=== PATIENT | female | born 1955 | race Caucasian/White ===

== ENCOUNTER 2018-01-31 12:56 | Observation (INO) | payer OTHER ==
[2018-01-31] VITALS (9 sets, daily range): BP systolic 128–179; BP diastolic 60–88; PULSE 59–79; RESP 12–20; TEMP 98.2–98.5; O2SAT 96–99
[~2018-01-31 12:56] MED LIST: ANTIACID; HYDR-3533 PO; LOVA40TA OR; MEDR2.5 PO; METHO500 PO; ZOLO25TA PO
[2018-01-31 13:33] LABS: AUTOMATED NEUTROPHIL # 2.9 TH/MM3 (1.8-7.7); BASOPHIL # 0.1 TH/MM3 (0-0.2); BASOPHIL % 1.3 % (0.0-2.0); EOSINOPHIL # 0.2 TH/MM3 (0-0.4); EOSINOPHIL % 4.1 % (0.0-4.0); HEMATOCRIT 41.7 % (35.0-46.0); HEMOGLOBIN 14.1 GM/DL (11.6-15.3); LYMPH % 25.6 % (9.0-44.0); LYMPHOCYTE # 1.3 TH/MM3 (1.0-4.8); MEAN CELL VOLUME 86.5 FL (80.0-100.0); MEAN CORPUSCULAR HEMOGLOBIN 29.1 PG (27.0-34.0); MEAN CORPUSCULAR HGB CONC 33.7 % (32.0-36.0); MEAN PLATELET VOLUME 9.7 FL (7.0-11.0); MONO % 10.2 % (0.0-8.0); MONOCYTE # 0.5 TH/MM3 (0-0.9); NEUT % 58.8 % (16.0-70.0); PLATELET COUNT 207 TH/MM3 (150-450); RED BLOOD COUNT 4.83 MIL/MM3 (4.00-5.30); RED CELL DISTRIBUTION WIDTH 14.2 % (11.6-17.2)
[2018-01-31 13:49] LABS: ALBUMIN 3.7 GM/DL (3.4-5.0); ALT (GPT) 20 U/L (10-53); AST (GOT) 19 U/L (15-37); BICARBONATE 28.3 MEQ/L (21.0-32.0); BLOOD UREA NITROGEN 9 MG/DL (7-18); CALCIUM 8.9 MG/DL (8.5-10.1); CHLORIDE 105 MEQ/L (98-107); CREATININE 0.77 MG/DL (0.50-1.00); GLOMERULAR FILTRATION RATE 76 ML/MIN (>89); GLUCOSE,RANDOM 129 MG/DL (74-106); MAGNESIUM 2.1 MG/DL (1.5-2.5); SODIUM (NA) 140 MEQ/L (136-145)
[2018-01-31 13:54] LABS: ALKALINE PHOSPHATASE 82 U/L (45-117); TOTAL BILIRUBIN ADULT 0.6 MG/DL (0.2-1.0); TOTAL PROTEIN 7.5 GM/DL (6.4-8.2); TROPONIN I LESS THAN 0.02 NG/ML (0.02-0.05)
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
[2018-01-31] MEDS ORDERED: LORazepam 2 MG/ML VIAL IV PUSH ONE (14:15)
[2018-01-31] MEDS ORDERED: ASPIRIN 81 MG CHEW TAB CHEW ONE (14:15)
[2018-01-31] MEDS ORDERED: ONDANSETRON HCL 4 MG/2 ML VIAL IV PUSH ONE (14:15)
--- NOTE | 2018-01-31 14:19 | RADRPT ---
EXAM DATE/TIME: 01/31/2018 13:43 [facility] COMPARISON: CHEST PA & LAT, January 15, 2016, 21:35. INDICATIONS : Chest pain. with shortness of breath. MEDICAL HISTORY : Asthma. SURGICAL HISTORY : None. ENCOUNTER: Initial ACUITY: 1 week PAIN SCORE: 2/10 LOCATION: Bilateral chest FINDINGS: PA and lateral views of the chest demonstrate the lungs to be symmetrically aerated without evidence of mass, infiltrate or effusion. There is suggestion of some mild atelectasis or scarring in the lef t lingula/lower lobe. The cardiomediastinal contours are unremarkable. Osseous structures are intact with a mild dextroscoliosis of the dorsal spine. CONCLUSION: 1. Possible scarring or atelectasis in the left lingular region. Lungs are otherwise clear. 2. Mild dextroscoliosis of the dorsal spine Bernardo Bowers MD on January 31, 2018 at 14:12 Board Certified Radiologist. This report was verified electronically.
[2018-01-31] MEDS ORDERED: IOHEXOL 350 MG/ML 50 ML BTL (for Cath Lab) OTHER ONE (14:26)
--- NOTE | 2018-01-31 14:33 | PD ---
Data Data Last Documented VS Vital Signs Date Time Temp Pulse Resp B/P (MAP) Pulse Ox O2 Delivery O2 Flow Rate FiO2 01/31/18 14:11 71 97 Room Air 01/31/18 14:11 15 168/77 (107) 01/31/18 13:08 98.2 Orders Orders Electrocardiogram (01/31/18 13:12) Ckmb (Isoenzyme) Profile (01/31/18 13:12) Complete Blood Count With Diff (01/31/18 13:12) Comprehensive Metabolic Panel (01/31/18 13:12) Magnesium (Mg) (01/31/18 13:12) Prothrombin Time / Inr (Pt) (01/31/18 13:12) Act Partial Throm Time (Ptt) (01/31/18 13:12) Troponin I (01/31/18 13:12) Lipase (01/31/18 13:12) Chest, Pa & Lat (01/31/18 13:12) Lorazepam Inj (Ativan Inj) (01/31/18 14:15) Aspirin Chew (Aspirin Chew) (01/31/18 14:15) Ondansetron Inj (Zofran Inj) (01/31/18 14:15) Admit Order (Ed Use Only) (01/31/18 14:24) Labs Laboratory Tests Test 01/31/18 13:14 White Blood Count 5.0 TH/MM3 Red Blood Count 4.83 MIL/MM3 Hemoglobin 14.1 GM/DL Hematocrit 41.7 % Mean Corpuscular Volume 86.5 FL Mean Corpuscular Hemoglobin 29.1 PG Mean Corpuscular Hemoglobin Concent 33.7 % Red Cell Distribution Width 14.2 % Platelet Count 207 TH/MM3 Mean Platelet Volume 9.7 FL Neutrophils (%) (Auto) 58.8 % Lymphocytes (%) (Auto) 25.6 % Monocytes (%) (Auto) 10.2 % Eosinophils (%) (Auto) 4.1 % Basophils (%) (Auto) 1.3 % Neutrophils # (Auto) 2.9 TH/MM3 Lymphocytes # (Auto) 1.3 TH/MM3 Monocytes # (Auto) 0.5 TH/MM3 Eosinophils # (Auto) 0.2 TH/MM3 Basophils # (Auto) 0.1 TH/MM3 CBC Comment DIFF FINAL Differential Comment Prothrombin Time 10.0 SEC Prothromb Time International Ratio 1.0 RATIO Activated Partial Thromboplast Time 25.0 SEC Blood Urea Nitrogen 9 MG/DL Creatinine 0.77 MG/DL Random Glucose 129 MG/DL Total Protein 7.5 GM/DL Albumin 3.7 GM/DL Calcium Level 8.9 MG/DL Magnesium Level 2.1 MG/DL Alkaline Phosphatase 82 U/L Aspartate Amino Transf (AST/SGOT) 19 U/L Alanine Aminotransferase (ALT/SGPT) 20 U/L Total Bilirubin 0.6 MG/DL Sodium Level 140 MEQ/L Potassium Level 3.5 MEQ/L Chloride Level 105 MEQ/L Carbon Dioxide Level 28.3 MEQ/L Anion Gap 7 MEQ/L Estimat Glomerular Filtration Rate 76 ML/MIN Total Creatine Kinase 84 U/L Troponin I LESS THAN 0.02 NG/ML Lipase 138 U/L MDM Supervised Visit with TANVI: Yes Narrative Course I, Dr. Buitrago, have reviewed the advance practice practitioner's documentation and am in agreement, met with the patient face to face, made the diagnosis, and the medical decision making was done by me. *My assessment and Findings: Patient will be admitted to the chest pain center. She has had a week of tightness. Cardiac workup here is negative including EKG and chest x-ray and cardiac enzymes. However, she does have risk factors for CAD. She is also very anxious. Ativan dose given. Diagnosis Primary Impression: Chest pain Qualified Codes: R07.9 - Chest pain, unspecified Additional Impression: Anxiety Admitting Information Admitting Physician Requests: Observation Scripts No Active Prescriptions or Reported Meds Michael Buitrago MD Jan 31, 2018 14:33
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
[2018-01-31] MEDS ORDERED: ACETAMINOPHEN 500 MG CPLT PO PRN (16:00)
[2018-01-31] MEDS ORDERED: SODIUM CHLORIDE 0.9% FLUSH 10 ML FLUSH IV FLUSH PRN (16:00)
[2018-01-31] MEDS ORDERED: ONDANSETRON HCL 4 MG/2 ML VIAL IV PUSH PRN (16:00)
[2018-01-31] MEDS ORDERED: NITROGLYCERIN 0.4 MG SL 25 TABS/BTL SL PRN (16:00)
[2018-01-31 17:09] LABS: TROPONIN I LESS THAN 0.02 NG/ML (0.02-0.05)
[2018-01-31] MEDS ORDERED: ALPRAZolam 0.25 MG TAB PO PRN (18:30)
[2018-01-31 20:37] LABS: TROPONIN I LESS THAN 0.02 NG/ML (0.02-0.05)
[2018-01-31] MEDS: SODIUM CHLORIDE 0.9% FLUSH 10 ML FLUSH IV FLUSH SCH (21:00)
[2018-02-01] VITALS: BP 127/60; PULSE 64; RESP 16; TEMP 98.5; O2SAT 98
[2018-02-01 04:27] VITALS: BP 108/56; PULSE 63; RESP 17; TEMP 98.5; O2SAT 96
[2018-02-01 07:20] VITALS: PULSE 57
[2018-02-01 08:19] VITALS: BP 142/65; PULSE 62; RESP 18; TEMP 97.7; O2SAT 94
[2018-02-01] MEDS ORDERED: ASPIRIN 325 MG TAB PO SCH (09:00)
[2018-02-01] MEDS ORDERED: REGADENOSON INJ 0.4 MG/5 ML SYR ONE (09:15)
[2018-02-01] MEDS: SODIUM CHLORIDE 0.9% FLUSH 10 ML FLUSH IV FLUSH SCH (10:42)
--- NOTE | 2018-02-01 10:51 | RADRPT ---
EXAM DATE/TIME: 02/01/2018 09:03 [facility] COMPARISON: No previous studies available for comparison. INDICATIONS : Substernal chest pain. Angina. DOSE: 27.3 mCi Tc99m Myoview at stress. 8.6 mCi Tc99m Myoview at rest. 0.4 mg Lexiscan STRESS SYMPTOMS: Dyspnea, nausea, dizziness and chest tightness. EJECTION FRACTION: 68% MEDICAL HISTORY : Angina. Anxiety Asthma SURGICAL HISTORY : Tubal ligation. Left knee scope ENCOUNTER: Initial ACUITY: 1 week PAIN SCALE: 3/10 LOCATION: Substernal chest TECHNIQUE: The patient underwent pharmacologic stress with infusion of prescribed dose. Continuous ECG tracing was monitored during stress. Gated SPECT imaging was performed after stress and conventional SPECT i maging was performed at rest. The examination was performed on a SPECT/CT scanner, both attenuation and non-corrected datasets were reviewed. FINDINGS: DISTRIBUTION: The maximum perfused segment at stress is in the inferior wall. PERFUSION STUDY: The pattern of perfusion at stress shows some redistribution in the inferolateral wall on both the sh ort axis and vertical long axis views concerning for focal area of ischemia. Fixed diminished perfusi on to the low anterior wall extending to the apex GATED STUDY: There is intact wall motion and thickening without hypokinetic or dyskinetic segments. CONCLUSION: 1. 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 2. Some redistribution in the mid anterolateral wall suggesting focal ischemia. 3. Preserved wall motion throughout with an estimated ejection fraction of 68% RISK CATEGORY: Intermediate (1-3% Annual Mortality Rate) Bernardo Bowers MD on February 01, 2018 at 10:41 Board Certified Radiologist. This report was verified electronically.
[2018-02-01] MEDS ORDERED: SODIUM CHLOR 0.9% 1000 ML INJ 1,000 ML IV SCH (11:18)
[2018-02-01 11:37] VITALS: BP 140/66; PULSE 70; RESP 18; TEMP 97.8; O2SAT 98
--- NOTE | 2018-02-01 12:42 | PD.CARD.PN ---
Subjective Subjective Remarks o chest pain. Lexiscan suggests old anterior scar and focal area of ischemia Objective Medications Current Medications Medications (Trade) Dose Ordered Sig/Lokesh Route Start Time Stop Time Status Last Admin (NS Flush) 2 ml UNSCH PRN IV FLUSH 01/31/18 16:00 (NS Flush) 2 ml BID IV FLUSH 01/31/18 21:00 02/01/18 10:42 (Tylenol) 500 mg Q4H PRN PO 01/31/18 16:00 (Zofran Inj) 4 mg Q6H PRN IV PUSH 01/31/18 16:00 (Nitrostat Sl) 0.4 mg Q5M PRN SL 01/31/18 16:00 (Aspirin) 325 mg DAILY PO 02/01/18 09:00 02/01/18 10:42 (Xanax) 0.25 mg Q6H PRN PO 01/31/18 18:30 Sodium Chloride 1,000 ml @ 125 mls/hr Q8H IV 02/01/18 11:18 02/01/18 19:17 02/01/18 12:36 (Lopressor) 25 mg Q12HR PO 02/01/18 21:00 Vital Signs / I&O Vital Signs Date Time Temp Pulse Resp B/P (MAP) Pulse Ox O2 Delivery O2 Flow Rate FiO2 02/01/18 11:37 97.8 70 18 140/66 (90) 98 02/01/18 08:19 97.7 62 18 142/65 (90) 94 02/01/18 07:20 57 02/01/18 06:15 21 02/01/18 04:27 98.5 63 17 108/56 (73) 96 02/01/18 00:00 98.5 64 16 127/60 (82) 98 01/31/18 23:00 60 01/31/18 20:02 98.3 71 17 128/60 (82) 96 01/31/18 17:03 59 01/31/18 16:06 98.5 63 12 142/72 (95) 98 01/31/18 16:05 01/31/18 15:58 96 21 01/31/18 15:57 65 16 160/77 (104) 97 01/31/18 14:36 67 16 160/80 (106) 96 Room Air 01/31/18 14:11 71 97 Room Air 01/31/18 14:11 68 15 168/77 (107) 96 Room Air 01/31/18 13:08 98.2 79 20 179/88 (118) 99 Physical Exam Lungs clear RRR no murmur Laboratory Laboratory Tests Test 01/31/18 13:14 01/31/18 16:22 01/31/18 19:38 White Blood Count 5.0 TH/MM3 Red Blood Count 4.83 MIL/MM3 Hemoglobin 14.1 GM/DL Hematocrit 41.7 % Mean Corpuscular Volume 86.5 FL Mean Corpuscular Hemoglobin 29.1 PG Mean Corpuscular Hemoglobin Concent 33.7 % Red Cell Distribution Width 14.2 % Platelet Count 207 TH/MM3 Mean Platelet Volume 9.7 FL Neutrophils (%) (Auto) 58.8 % Lymphocytes (%) (Auto) 25.6 % Monocytes (%) (Auto) 10.2 % Eosinophils (%) (Auto) 4.1 % Basophils (%) (Auto) 1.3 % Neutrophils # (Auto) 2.9 TH/MM3 Lymphocytes # (Auto) 1.3 TH/MM3 Monocytes # (Auto) 0.5 TH/MM3 Eosinophils # (Auto) 0.2 TH/MM3 Basophils # (Auto) 0.1 TH/MM3 CBC Comment DIFF FINAL Differential Comment Prothrombin Time 10.0 SEC Prothromb Time International Ratio 1.0 RATIO Activated Partial Thromboplast Time 25.0 SEC Blood Urea Nitrogen 9 MG/DL Creatinine 0.77 MG/DL Random Glucose 129 MG/DL Total Protein 7.5 GM/DL Albumin 3.7 GM/DL Calcium Level 8.9 MG/DL Magnesium Level 2.1 MG/DL Alkaline Phosphatase 82 U/L Aspartate Amino Transf (AST/SGOT) 19 U/L Alanine Aminotransferase (ALT/SGPT) 20 U/L Total Bilirubin 0.6 MG/DL Sodium Level 140 MEQ/L Potassium Level 3.5 MEQ/L Chloride Level 105 MEQ/L Carbon Dioxide Level 28.3 MEQ/L Anion Gap 7 MEQ/L Estimat Glomerular Filtration Rate 76 ML/MIN Total Creatine Kinase 84 U/L 83 U/L 67 U/L Troponin I LESS THAN 0.02 NG/ML LESS THAN 0.02 NG/ML LESS THAN 0.02 NG/ML B-Type Natriuretic Peptide 42 PG/ML Lipase 138 U/L Imaging Last 24 hours Impressions Myocardial Perfusion Scan Nuc Med 02/01/18 0000 Signed Impressions: Service Date/Time: Thursday, February 01, 2018 09:03 - CONCLUSION: 1. 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 2. Some redistribution in the mid anterolateral wall suggesting focal ischemia. 3. Preserved wall motion throughout with an estimated ejection fraction of 68%% RISK CATEGORY: Intermediate (1-3%% Annual Mortality Rate) Bernardo Bowers MD Chest X-Ray 01/31/18 1312 Signed Impressions: Service Date/Time: Wednesday, January 31, 2018 13:43 - CONCLUSION: 1. Possible scarring or atelectasis in the left lingular region. Lungs are otherwise clear. 2. Mild dextroscoliosis of the dorsal spine Bernardo Bowers MD Assessment and Plan Assessment and Plan Questionable ischemia. Will plan cath to define coronary anatomy Ronald Partida MD Feb 01, 2018 12:42
[2018-02-01] MEDS ORDERED: MIDAZOLAM HCL 2 MG/2 ML VIAL ONE ×2 (13:17→13:25)
[2018-02-01] MEDS ORDERED: HEPARIN-NS/PF FLUSH BAG 2,000 ML IV FLUSH ONE (13:17)
[2018-02-01] MEDS ORDERED: LIDOCAINE HCL 1% PF 30 ML VIAL ONE (13:18)
[2018-02-01] MEDS ORDERED: LABETALOL HCL 100 MG/20 ML VIAL ONE (13:41)
[2018-02-01] MEDS ORDERED: MISC INFORMATION XX ONE (14:00)
[2018-02-01] MEDS ORDERED: SODIUM CHLOR 0.9% 250 ML INJ 250 ML IV PRN (14:00)
[2018-02-01] MEDS ORDERED: ONDANSETRON HCL 4 MG/2 ML VIAL IV PUSH PRN (14:00)
[2018-02-01] MEDS ORDERED: ATROPINE SULFATE 1 MG/ML VIAL IV PUSH PRN (14:00)
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
--- NOTE | 2018-02-01 14:11 | MA ---
cc: Ronald Partida MD DATE: 02/01/2018 PROCEDURE: The patient was prepped and draped in the usual fashion. A 6 sheath was inserted percutaneously in the right femoral artery. Coronary angiography was done with Rosalie preformed catheters. RESULTS: Aortic pressure is 150/68. She was given 20 mg of labetalol for blood pressure control. CORONARY ANGIOGRAPHY: Left main coronary was normal. Left anterior descending artery was essentially normal throughout its course. Left circumflex artery was normal throughout its course. Right coronary was anatomically dominant and normal throughout its course. At the end of the procedure the arteriotomy was sealed with Angio-Seal technique. The patient was returned to her room in good condition. CONCLUSION: Normal coronary arteries. Mild systolic hypertension. Ronald Partida MD DLW/TL , 01:58 PM , 02:10 PM
--- NOTE | 2018-02-01 17:36 | TR ---
Date Performed: 02/01/2018 Time Performed: 09:28:14 DOCTOR: Reena Garrett DRUG LIST: CLINICAL HISTORY: REASON FOR TEST: CHEST PAIN REASON FOR ENDING: OBSERVATION: CONCLUSION: COMMENTS: Lexiscan stress test was performed under standard four minute protocol. Radionuclide was injected one minute prior to ending the test. No electrocardiographic abormalities were present t o suggest ischemia. Nuclear imaging and interpretation are pending.
--- NOTE | 2018-02-01 17:44 | EKG ---
Date Performed: 01/31/2018 Time Performed: 16:26:17 PTAGE: 62 years EKG: Sinus rhythm NORMAL ECG Since PREVIOUS TRACING , no significant change noted PREVIOUS TRACIN01/31/2018 13.19 DOCTOR: Reena Garrett Interpretating Date/Time 02/01/2018 17:42:56
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
--- NOTE | 2018-02-01 17:51 | EKG ---
Date Performed: 01/31/2018 Time Performed: 13:19:28 PTAGE: 62 years EKG: Sinus rhythm MINIMAL ST DEPRESSION BORDERLINE ECG Since PREVIOUS TRACING , no significant change noted PREVIOUS TRACIN01/22/2004 11.35 DOCTOR: Reena Garrett Interpretating Date/Time 02/01/2018 17:49:36
[2018-02-01] MEDS ORDERED: METOPROLOL TARTRATE 25 MG TAB PO SCH (21:00)
== END 2018-02-01 16:34 | disposition home or self-care (01) ==
LOC: NEPC 12:56 → NEDA 14:25 → NEPHCDU 16:42 → HCIS 02-01 15:33
PROVIDERS: ADMIT Internal Medicine Cardiovascular Disease; ATTEND Internal Medicine Cardiovascular Disease
DX: R07.89 Other chest pain (principal); R11.0 Nausea; F41.9 Anxiety disorder, unspecified; I10 Essential (primary) hypertension; J45.909 Unspecified asthma, uncomplicated; E78.5 Hyperlipidemia, unspecified; F40.240 Claustrophobia; Z82.49 Family history of ischemic heart disease and other diseases of the circulatory system
CPT/HCPCS: 71046; 78452; 80053; 82550; 83690; 83735; 83880; 84484; 85025; 85610; 85730; 93005; 93017; 93454; 96374; 96375; 99152; 99153; 99285; A9502; C1760; C1769; C1893; G0269; G0378; J1644; J2060; J2250; J2405; J2785; J7030; Q9967

== ENCOUNTER 2018-02-28 15:50 | Emergency (ER) | payer OTHER ==
[~2018-02-28] VITALS: Ht 162.6 cm; Wt 75.0 kg
[2018-02-28 16:00] VITALS: BP 162/77; PULSE 84; RESP 20; TEMP 98.4; O2SAT 100
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
== END 2018-02-28 19:53 | disposition home or self-care (01) ==
LOC: NEPD 15:50
DX: S09.90XA Unspecified injury of head, initial encounter (principal); S20.212A Contusion of left front wall of thorax, initial encounter; M54.2 Cervicalgia; V43.52XA Car driver injured in collision with other type car in traffic accident, initial encounter
CPT/HCPCS: 70450; 71046; 72072; 72125